=== PATIENT | female | born 1995 ===

== ENCOUNTER 2016-12-08 15:55 | Emergency (ER) | payer BC ==
--- NOTE | 2017-01-01 14:44 | ER ---
ADMIT: 12/08/2016 RM/LOC: ER [facility] MR#: [id number] [address] NAIF MCKEON [address] [place] [address] Emergency Room Report SEX: F AGE: 21 : 1995 DATE: 12/08/2016 ADDENDUM: This patient comes to the ER because she has had abdominal pain for the last 3 days. It is severe in her epigastric area and she is not keeping any fluids down. White count was normal. CMP was normal. She had leukocyte esterase in her urine. IV of normal saline was started. She was given a liter of bolus. She was given Zantac and Zofran. Abdominal ultrasound was negative for cholecystitis. DIAGNOSIS: Vomiting and nausea. She was sent home with Zofran. She is to follow up with her primary in the next few days if not feeling better. Please see my T-sheet. RAVEN Regalado / Smooth Montenegro MD / elizabethl JOB #: [id number] CC: Smooth Montenegro MD, Attending Physician David Lopez MD, Family Physician
== END 2016-12-08 18:55 | disposition home or self-care (01) ==
LOC: ER 15:55
DX: R11.2 Nausea with vomiting, unspecified (principal); Z88.6 Allergy status to analgesic agent; Z88.8 Allergy status to other drugs, medicaments and biological substances

== ENCOUNTER 2016-12-13 15:50 | Emergency (ER) | payer BC ==
--- NOTE | 2016-12-18 13:49 | ER ---
ADMIT: 12/13/2016 RM/LOC: ER [facility] MR#: [id number] [address] MCKE[place] NAIFLATESHA WEEKS [address] [place] [address] Emergency Room Report SEX: F AGE: 21 : 1995 DATE: 12/13/2016 HISTORY OF PRESENT ILLNESS: The patient is a 21-year-old female, came to the ER with chief complaint of cough more than 5 days and some runny nose and also some greenish phlegm with the cough and sometimes intermittently on and off difficulty breathing. The patient also has subjective, fever, and chills. PHYSICAL EXAMINATION: VITAL SIGNS: In the ER, the patient were afebrile, in no obvious distress, O2 saturation was 99% on room air, the patient was not tachypneic or tachycardic. HEAD AND NECK: Positive for erythematous oropharynx with some postnasal drip. CHEST: Clear to auscultation. HEART: Normal S1, S2 without any extra murmurs. ABDOMEN: Soft, and the rest of the physical exam is noncontributory. LABORATORY DATA: White BC of 7.0 with hemoglobin of 12.8, and platelet of 217. Chest x-ray was negative for any pathologies or infiltrations. Sodium was 139, which was 73.4. The rest of the lab is noncontributory. The patient was discharged home with return precautions. DIAGNOSIS: Upper respiratory infection. Follow up acute bronchitis. The patient was advised to take Tylenol if febrile, follow up with the ER or primary care doctor, was prescribed Z-William and was discharged to home. Currently, she understood the plan and agreed with it. Miguel Reynolds MD/ rbaydon JOB #: [id number] CC: Kyler Person MD, Attending Physician Valentín Lucero MD, Family Physician
== END 2016-12-13 18:35 | disposition home or self-care (01) ==
LOC: ER 15:50
DX: J20.9 Acute bronchitis, unspecified (principal); Z88.8 Allergy status to other drugs, medicaments and biological substances; Z85.72 Personal history of non-Hodgkin lymphomas